=== PATIENT | female | born 1975 | race African-American/Black ===

== ENCOUNTER 2019-06-07 09:06 | Day surgery (SDC) | payer BC ==
[2019-06-03 11:02] VITALS: BMI 29.2
[2019-06-07 09:28] VITALS: TEMP 98.5
[2019-06-07] MEDS ORDERED: PROPOFOL 20 ML ONE (09:30)
[2019-06-07] MEDS ORDERED: LIDOCAINE HCL/PF 2% SDV 5ML VIAL ONE (09:30)
[2019-06-07 10:41] VITALS: BP 132/90; PULSE 98
--- NOTE | 2019-06-10 15:19 | PATH ---
Surgical Pathology Report Patient Name: LATASHA PRECIADO [facility]. Rec. #: [id number] /Age/Gender: 1975 (Age: 43) / F Account: [id number] Location: [facility] Taken: 06/07/2019 Received: 06/07/2019 Reported: 06/10/2019 Physicians: Ludwig Constantino M.D. Specimen(s) Received A: SECOND PORTION DUODENUM B: ANTRUM C: ESOPHAGUS Clinical History GERD Postoperative diagnosis: Gastritis Final Diagnosis A. DUODENUM, SECOND PORTION, BIOPSY: DUODENAL MUCOSA WITHOUT SIGNIFICANT PATHOLOGIC FINDINGS. B. GASTRIC ANTRUM, BIOPSY: GASTRIC ANTRAL MUCOSA WITH MILD CHRONIC GASTRITIS. IMMUNOHISTOCHEMICAL STAIN FOR H. PYLORI IS NEGATIVE. C. ESOPHAGUS, BIOPSY: SQUAMOUS MUCOSA WITH MILD VASCULAR CONGESTION. Electronically Signed Sallie Casas M.D. Gross Description A. Received in formalin, labeled "biopsy second portion duodenum" are 2 vega, irregular portions of soft tissue averaging 0.4 cm. in greatest dimension. The specimens are submitted in toto in one cassette. B. Received in formalin, labeled "biopsy gastric antrum" are 3 vega, irregular portions of soft tissue ranging from 0.2-0.4 cm. in greatest dimension. The specimens are submitted in toto in one cassette. C. Received in formalin, labeled "biopsy esophagus" is a vega, irregular portion of soft tissue measuring 0.3 cm. in greatest dimension. The specimen is submitted in toto in one cassette. 06/08/201906/08/2019
== END 2019-06-07 10:45 | disposition home or self-care (01) ==
LOC: FASU-ENDO 09:06
PROVIDERS: ATTEND Internal Medicine Gastroenterology
PROC: 0DB68ZX Excision of Stomach, Via Natural or Artificial Opening Endoscopic, Diagnostic (ICD-10-PCS; 2019-06-07)
PROC: 0DB38ZX Excision of Lower Esophagus, Via Natural or Artificial Opening Endoscopic, Diagnostic (ICD-10-PCS; 2019-06-07)
PROC: 0DB98ZX Excision of Duodenum, Via Natural or Artificial Opening Endoscopic, Diagnostic (ICD-10-PCS; principal; 2019-06-07 09:51)
DX: K29.50 Unspecified chronic gastritis without bleeding (principal); K22.9 Disease of esophagus, unspecified; R12 Heartburn
CPT/HCPCS: 84703

== ENCOUNTER 2021-01-14 07:30 | Emergency (ER) | payer BC ==
[2021-01-14 07:37] VITALS: TEMP 99.3; BMI 32.5
[2021-01-14] MEDS ORDERED: KETOROLAC TROMETHAMINE 60 MG/2 ML VIAL IM ONE (07:41)
[2021-01-14] MEDS ORDERED: LIDOCAINE 5% TOPICAL PATCH TP ONE (07:41)
[2021-01-14] MEDS ORDERED: KETOROLAC TROMETHAMINE 60 MG/2 ML VIAL ONE (07:46)
[2021-01-14] MEDS ORDERED: LIDOCAINE 5% TOPICAL PATCH ONE (07:46)
[2021-01-14] MEDS ORDERED: METHOCARBAMOL 500 MG TABLET PO ONE (08:29)
[2021-01-14] MEDS ORDERED: ACETAMINOPHEN 500 MG TABLET (FP) PO ONE (08:40)
[2021-01-14] MEDS ORDERED: METHOCARBAMOL 500 MG TABLET ONE (08:44)
[2021-01-14] MEDS ORDERED: ACETAMINOPHEN 325 MG TABLET (FP) PO ONE (08:45)
[2021-01-14] MEDS ORDERED: ACETAMINOPHEN 325 MG TABLET (FP) ONE (08:45)
[2021-01-14 09:28] VITALS: BP 99/62; PULSE 62
[2021-01-14] MEDS ORDERED: LIDOCAINE PATCH REMOVAL MC SCH (22:00)
== END 2021-01-14 09:31 | disposition home or self-care (01) ==
LOC: FER 07:30
PROC: 3E0233Z Introduction of Anti-inflammatory into Muscle, Percutaneous Approach (ICD-10-PCS; principal; 2021-01-14)
DX: M54.41 Lumbago with sciatica, right side (principal)
CPT/HCPCS: 99284-25